=== PATIENT | male | born 1980 | race Caucasian/White ===

== ENCOUNTER 2024-06-25 15:50 | Emergency (ER) | payer BC, SELFPAY ==
--- NOTE | ~2024-06-25 | XR_ITS ---
EXAMINATION: XR chest 2V DATE: 06/25/2024 16:38 INDICATION: Cough. TECHNIQUE: Frontal and lateral views of the chest were obtained on 3 radiographs. COMPARISON: None. FINDINGS: There is no pneumonia, pleural effusion, or pneumothorax. The heart size is normal. IMPRESSION: 1. No acute cardiopulmonary disease. Reviewed, dictated and finalized at location A. [facility] [employer]
[2024-06-25 15:56] VITALS: BP 132/87; PULSE 65; RESP 16; TEMP 37.1; O2SAT 100
--- NOTE | 2024-06-25 16:25 | ED.URI ---
HPI - URI/Sore Throat General Chief Complaint: Upper Respiratory Infection Stated Complaint: Shortness of Breath/Cough Time Seen by Provider: 06/25/24 16:25 Source: patient Mode of arrival: ambulatory Limitations: no limitations History of Present Illness HPI Narrative: 43-year-old male presents with complaint of cough, chest congestion for 1 week. Reports shortness of breath with exertion for the last 1-2 days. Patient reports family members at home have pneumonia. Patient is afebrile. Current everyday smoker. All systems reviewed and negative except as noted above. Related Data Home Medications Medication Instructions Recorded Confirmed allopurinol 300 mg tablet 300 mg PO DAILY 06/25/24 06/25/24 Allergies Allergy/AdvReac Type Severity Reaction Status Date / Time No Known Allergies Allergy Mild Verified 06/25/24 16:30 Review of Systems Review of Systems: CONSTITUTIONAL: Denies fever, chills, or sweats. EYES: Denies visual changes, redness, or discharge. ENT: Denies rhinorrhea, congestion, sore throat, or otalgia. CARDIOVASCULAR: Denies chest pain, palpitations, or edema. RESPIRATORY: Reports cough, chest congestion and dyspnea with exertion. GASTROINTESTINAL: Denies abdominal pain, nausea, vomiting, or diarrhea. GENITOURINARY: Denies dysuria or hematuria. SKIN: Denies rash or itching. MUSCULOSKELETAL: Denies back pain, joint pain, or myalgia. NEUROLOGIC: Denies headache, numbness, or weakness. PSYCHIATRIC: Denies anxiety or depression. All other systems reviewed are negative, except as documented in HPI. PMFSH Comments At time of signature, agree with nursing past medical, surgical, social and family history. There is no relevant family history pertinent to the presenting complaint. Exam Narrative: GENERAL: This is a well-nourished, well-developed patient, patient ill-appearing but no acute distress HEAD: normocephalic, atraumatic. EYES: PERRL. Sclera clear/white. Vision is grossly intact. EARS: External ears normal, auditory canals clear and without drainage, TMs normal without perforation. Hearing grossly intact. NOSE: External nose normal with nasal congestion, clear drainage THROAT: Mucous membranes moist, posterior pharynx clear. NECK: Neck supple, non-tender without lymphadenopathy, masses or thyromegaly. CARDIOVASCULAR: Regular rate and rhythm without murmurs, gallops, or rubs. RESPIRATORY: Mildly coarse throughout all lung pool. Breath sounds equal bilaterally. No wheezes, rales, or rhonchi. SKIN: warm, Dry, intact with no suspicious lesions or rash, good texture and turgor. NEURO: awake, alert, and oriented to person, place and time. There were no obvious focal neurologic abnormalities. EXTREMITIES: No joint tenderness, effusion, or edema noted. Course Course Level of Care: Express Care Visit Vital Signs Vital signs: Vital Signs Temperature 37.1 C 06/25/24 15:56 Pulse Rate 65 06/25/24 15:56 Respiratory Rate 16 06/25/24 15:56 Blood Pressure 132/87 06/25/24 15:56 Pulse Oximetry 100 06/25/24 15:56 Oxygen Delivery Room Air 06/25/24 15:56 Temperature 37.1 C 06/25/24 15:56 Pulse Rate 65 06/25/24 15:56 Respiratory Rate 16 06/25/24 15:56 Blood Pressure 132/87 06/25/24 15:56 Pulse Oximetry 100 06/25/24 15:56 Oxygen Delivery Room Air 06/25/24 15:56 Reviewed MDM - URI/Sore Throat MDM Narrative Medical decision making narrative: Chest x-ray negative for pneumonia. Will treat patient with prednisone, albuterol inhaler for bronchitis. Patient well-appearing, no respiratory distress. Patient is aware of diagnosis, understands and agrees to treatment plan. Anticipatory guidance given. Patient agrees to follow-up as directed and is aware of reasons to seek care at the emergency department. Portions of this record may have been created with voice recognition software Differential Diagnosis Differential diagnosis: Likely upper respiratory infection and bronchitis Imaging Data My impression: Agree with radiologist Radiologist's impression: EXAMINATION: XR chest 2V DATE: 06/25/2024 16:38 INDICATION: Cough. TECHNIQUE: Frontal and lateral views of the chest were obtained on 3 radiographs. COMPARISON: None. FINDINGS: There is no pneumonia, pleural effusion, or pneumothorax. The heart size is normal. IMPRESSION: 1. No acute cardiopulmonary disease. Discharge Plan Discharge Clinical Impression: Acute bronchitis Patient Disposition: Home, Self-Care Condition: Stable Instructions: Acute Bronchitis (ED) Additional Instructions: Your chest x-ray was normal, there were no concerns for pneumonia. Take medications as prescribed. Drink at least 64 oz of water a day. Follow-up your primary care physician if symptoms are not improving. Prescriptions: New benzonatate 200 mg capsule 200 mg PO TID PRN (Reason: cough) Qty: 20 0RF prednisone 20 mg tablet 40 mg PO DAILY 5 Days Qty: 10 0RF albuterol sulfate 90 mcg/actuation HFA aerosol inhaler 2 puff inhalation Q4-6H PRN (Reason: shortness of breath or wheezing) Qty: 8.5 0RF guaifenesin [Mucinex] 600 mg tablet extended release 12hr 600 mg PO BID 10 Days Qty: 20 0RF No Action allopurinol 300 mg tablet 300 mg PO DAILY Follow-up/Referrals: UNKNOWN,DOCTOR [Primary Care Provider] - Stand Alone Forms: Work/School Release IP Time of Disposition: 16:55
== END 2024-06-25 17:00 | disposition home or self-care (01) ==
PROVIDERS: Emergency Provider Nurse Practitioner Family
DX: J20.9 Acute bronchitis, unspecified (principal); M10.9 Gout, unspecified
CPT/HCPCS: 71046; 99213; G0463

== ENCOUNTER 2024-06-29 08:20 | Emergency (ER) | payer BC, OTHER, SELFPAY ==
[2024-06-29 08:28] VITALS: BP 115/80; PULSE 64; RESP 20; TEMP 36.6; O2SAT 100
--- NOTE | 2024-06-29 08:33 | ED.URI ---
HPI - URI/Sore Throat General Chief Complaint: Upper Respiratory Infection Stated Complaint: Congestion Time Seen by Provider: 06/29/24 08:33 Source: patient, RN notes reviewed and old records reviewed Mode of arrival: ambulatory Limitations: no limitations History of Present Illness HPI Narrative: 43-year-old male to Express Care with complaint of cough. Patient seen here 1 week ago and diagnosed with bronchitis. Patient was given prescription for benzonatate, prednisone, albuterol, Mucinex extended release. patient has been taking all medication as prescribed, states no improvement. Patient states he is experiencing body aches and weakness. Patient denies shortness of breath, chest pain, allergies. Patient able to tolerate fluids by mouth. Patient resting comfortably in exam room no acute distress. Cough present. Respirations even and nonlabored. Patient able to speak in complete sentences without difficulty. Related Data Home Medications Medication Instructions Recorded Confirmed allopurinol 300 mg tablet 300 mg PO DAILY 06/25/24 06/29/24 Allergies Allergy/AdvReac Type Severity Reaction Status Date / Time No Known Allergies Allergy Mild Verified 06/29/24 08:41 Review of Systems Review of Systems: All systems reviewed & are unremarkable except as noted in HPI and below Constitutional: Constitutional: Reports as per HPI and Reports body ache(s) Eyes: Eyes: Reports no additional eye complaints ENT: Reports system reviewed and no additional complaints, except as documented Cardiovascular: Cardiovascular: Reports no additional cardiovascular complaints, Denies chest pain and Denies dyspnea Respiratory: Respiratory: Reports no additional respiratory complaints, Denies cough and Denies dyspnea Musculoskeletal: Musculoskeletal: Reports no additional musculoskeletal complaints Neurologic: Reports system reviewed and no additional complaints, except as documented Psychiatric: Psychiatric: Reports no additional psychiatric complaints PMFSH Comments At the time of my signature, I reviewed and agree with the nursing past medical, surgical, social, and family history. There is no relevant family history pertinent to the patient complaint. Exam Const: General: cooperative, healthy appearing, comfortable, no acute distress, alert and well nourished Nutritional Appearance: well nourished Orientation/consciousness: patient oriented x3 Limitations: no limitations HENMT: Head: normal to inspection Ears: external ears normal Face/Nose/Sinus: Normal external nose present, Normal nares present, normal facial exam, No erythema and No edema Face and sinus: normal facial exam, no erythema and no edema Mouth: Yes Normal oral and palatal mucosa present Eyes: General: appearance normal, both eyes and all related structures Neck: Neck: normal visual inspection, full ROM and no meningeal signs Lymphatic: no lymphadenopathy noted and no lymphedema noted Chest: Chest palpation & inspection: normal inspection of the chest Resp: Effort & Inspection: normal respiratory effort and able to speak in complete sentences Auscultation: clear to auscultation bilaterally Cardio: Jugular venous distension: no JVD Rate: regular rate Rhythm: regular rhythm Back/Spine/Pelvis: Cervical Spine: cervical ROM normal Skin: General skin exam: normal color, no rashes or lesions noted and turgor normal Neuro: General: patient oriented x3, gait normal, moves all extremities and no meningeal signs Speech: normal speech Gait exam (Neuro): Normal gait present Extrem: General: normal to inspection, full ROM and capillary refill normal Psych: Appearance: grossly normal and well kempt Course Course Emergency Course: Some parts of this dictation were generated by voice recognition software and may contain typographical and/or grammatical inaccuracies. Level of Care: Express Care Visit Vital Signs Vital signs: Vital Signs Temperature 36.6 C 06/29/24 08:28 Pulse Rate 64 06/29/24 08:28 Respiratory Rate 20 06/29/24 08:28 Blood Pressure 115/80 06/29/24 08:28 Pulse Oximetry 100 06/29/24 08:28 Oxygen Delivery Room Air 06/29/24 08:28 Temperature 36.6 C 06/29/24 08:28 Pulse Rate 64 06/29/24 08:28 Respiratory Rate 20 06/29/24 08:28 Blood Pressure 115/80 06/29/24 08:28 Pulse Oximetry 100 06/29/24 08:28 Oxygen Delivery Room Air 06/29/24 08:28 reviewed MDM - URI/Sore Throat MDM Narrative Medical decision making narrative: 43-year-old male to Express Care with complaint of cough. Patient seen here 1 week ago and diagnosed with bronchitis. Patient was given prescription for benzonatate, prednisone, albuterol, Mucinex extended release. patient has been taking all medication as prescribed, states no improvement. Patient states he is experiencing body aches and weakness. Patient denies shortness of breath, chest pain, allergies. Patient able to tolerate fluids by mouth. Patient resting comfortably in exam room no acute distress. Cough present. Respirations even and nonlabored. Patient able to speak in complete sentences without difficulty. Discharge Plan Discharge Clinical Impression: Cough Patient Disposition: Home, Self-Care Condition: Stable Instructions: Acute Cough (ED) Additional Instructions: -Alternate Tylenol and Motrin per package directions for fever or pain. -Antihistamine medication such as Benadryl at night and Zyrtec/Claritin/Bina during the day can help improve symptoms. -Use Flonase twice a day for 5 days then daily to help reduce the inflammation and dry up your sinuses. -You can also use Sudafed or Mucinex. Be sure to drink plenty of water with these medications at least 8 ounces with every dose and it is important to drink 8 to 10 glasses of water per day. Water is a natural decongestant -Eat and drink things that are easy to swallow, like tea or soup, or popsicles. -Oral rinses such as: Salt water gargles and/or may use topical anesthetic (eg. Chloraseptic spray) or lozenges to relieve dryness or throat pain). -Frequent hand washing or hand aerodynamics engineer is one of the best ways to prevent spread of infection. -Using a vaporizer or humidifier at night will also help thin secretions and help with coughing up phlegm. -Follow up with primary care provider in 2-3 days if condition is not improving; or seek ER visit if you have trouble breathing, cannot drink enough fluids, have muffled voice, difficulty opening your mouth, or severe swelling. Prescriptions: New azithromycin 250 mg tablet 250 mg PO DAILY Qty: 6 0RF Rx Instructions: 250 mg orally. Take TWO tablets today, then one tablet daily for 4 days. amoxicillin-pot clavulanate 875-125 mg tablet 1 tablet PO Q12H Qty: 20 0RF No Action allopurinol 300 mg tablet 300 mg PO DAILY benzonatate 200 mg capsule 200 mg PO TID PRN (Reason: cough) Qty: 20 0RF prednisone 20 mg tablet 40 mg PO DAILY 5 Days Qty: 10 0RF albuterol sulfate 90 mcg/actuation HFA aerosol inhaler 2 puff inhalation Q4-6H PRN (Reason: shortness of breath or wheezing) Qty: 8.5 0RF guaifenesin [Mucinex] 600 mg tablet extended release 12hr 600 mg PO BID 10 Days Qty: 20 0RF Follow-up/Referrals: UNKNOWN,DOCTOR [Primary Care Provider] - Stand Alone Forms: Work/School Release IP
== END 2024-06-29 08:57 | disposition home or self-care (01) ==
PROVIDERS: Emergency Provider Nurse Practitioner Family
DX: R05.9 Cough, unspecified (principal)
CPT/HCPCS: 99213; G0463

== ENCOUNTER 2024-07-05 19:13 | Emergency (ER) | payer BC, OTHER, SELFPAY ==
[2024-07-05 19:16] VITALS: BP 144/79; PULSE 66; RESP 20; TEMP 36.4; O2SAT 98
--- NOTE | 2024-07-05 19:30 | ED_ITS ---
HPI - Extremity Injury (Lower) General Chief Complaint: Extremity Problem,Nontraumatic Stated Complaint: Right Toe Pain Source: patient Mode of arrival: ambulatory Limitations: no limitations History of Present Illness HPI Narrative: 43-year-old male presented for complaint of right great toe pain, onset yesterday. States he thinks he has a gout flare. Denies significant redness or swelling yet. Takes allopurinol as prescribed. he started indomethacin last night and multiple doses today without significant improvement. However he states he is aware that if he had taken it he would not be able to walk. denies trauma or change to diet. Related Data Home Medications Medication Instructions Recorded Confirmed allopurinol 300 mg tablet 300 mg PO DAILY 06/25/24 07/05/24 indomethacin 25 mg capsule 25 mg PO BID PRN Pain 07/05/24 07/05/24 Allergies Allergy/AdvReac Type Severity Reaction Status Date / Time No Known Allergies Allergy Mild Verified 07/05/24 19:29 Review of Systems Review of Systems: CONSTITUTIONAL: Denies body aches, fever, chills CARDIOVASCULAR: Denies chest pain, palpitations, or edema. RESPIRATORY: Denies cough or dyspnea. SKIN: Denies rash, itching, or wounds. MUSCULOSKELETAL: Reports right great toe pain NEUROLOGIC: Denies headache, numbness, tingling, or weakness. PSYCH: Denies depression or anxiety. All systems reviewed & are unremarkable except as noted in HPI and below PMFSH Comments At time of signature, I have reviewed and agree with nursing past medical, surgical, social and family history unless otherwise noted. Please see nursing chart for further information. There is no relevant family history pertinent to the presenting complaint Exam Narrative: GENERAL: Well-appearing CHEST: Speaks in full sentences. No respiratory distress. HEART: Regular rate and rhythm. Normal and equal peripheral pulses. EXTREMITIES: Right foot has normal strength and sensation, normal range of motion. Mildly erythematous 1st MTP joint, tender with palpation. No swelling or ecchymosis, No open wounds, or obvious deformity; alignment normal, pulse palpable and equal bilaterally, skin warm, dry, pink. Capillary refill less than 3 seconds. SKIN: Warm, dry NEURO: Alert and oriented x3. PSYCH: Normal mood and affect Course Course Emergency Course: Patient is aware of diagnosis, understands and agrees to treatment plan. Anticipatory guidance given. Patient agrees to follow-up as directed and is aware of reasons to seek care at the emergency department. Portions of this record may have been created with voice recognition software Level of Care: Express Care Visit Vital Signs Vital signs: Vital Signs Temperature 97.5 F L 07/05/24 19:16 Pulse Rate 66 07/05/24 19:16 Respiratory Rate 20 07/05/24 19:16 Blood Pressure 144/79 H 07/05/24 19:16 Pulse Oximetry 98 07/05/24 19:16 Oxygen Delivery Room Air 07/05/24 19:16 Temperature 97.5 F L 07/05/24 19:16 Pulse Rate 66 07/05/24 19:16 Respiratory Rate 20 07/05/24 19:16 Blood Pressure 144/79 H 07/05/24 19:16 Pulse Oximetry 98 07/05/24 19:16 Oxygen Delivery Room Air 07/05/24 19:16 Reviewed MDM - Extremity Injury (Lower) MDM Narrative Medical decision making narrative: Discussed physical exam findings and reviewed Rx. Advised supportive measures and signs/symptoms to go to the ER. Pt is appropriate for outpt treatment and f/u. Differential Diagnosis Differential diagnosis: Likely other (Plantar fasciitis, heel spur, foot strain/sprain, metatarsal fracture, metatarsalgia, driver's neuroma, gout) Discharge Plan Discharge Clinical Impression: Great toe pain Patient Disposition: Home, Self-Care Condition: Stable Instructions: Gout (ED) Additional Instructions: Gout is a form of inflammatory?arthritis that causes pain and swelling in your joints. A buildup of excess uric acid in your body causes gout. Your body naturally makes uric acid when it breaks down chemicals called purines found in certain foods and drinks. Your kidneys usually filter uric acid out of your blood. Gout symptoms come and go in episodes called flares or gout attacks.?Gout attac ks usually last a week or two. You might have some flares that last longer than others, and some might cause more severe symptoms. Between attacks, you might not experience any gout symptoms. Risks include: Parent/grandparent with gout Eating a lot of animal proteins ? especially animal flesh, shellfish and foods that contain organ meat. Drinking alcohol regularly. Taking a diuretic medication (water pills). Taking immunosuppressants Take medication as directed Recommend low purine diet Follow up with primary care provider in 1 week Go to the ER for worsening symptoms or concerns Prescriptions: New prednisone 20 mg tablet 20 mg PO DAILY Qty: 15 0RF Rx Instructions: Take 2 tablets daily for 5 days. Then 1 tablet daily for 5 days. No Action allopurinol 300 mg tablet 300 mg PO DAILY albuterol sulfate 90 mcg/actuation HFA aerosol inhaler 2 puff inhalation Q4-6H PRN (Reason: shortness of breath or wheezing) Qty: 8.5 0RF indomethacin 25 mg Capsule 25 mg PO BID PRN (Reason: Pain) Rx Instructions: administer with food or milk Follow-up/Referrals: UNKNOWN,DOCTOR [Primary Care Provider] - Time of Disposition: 19:45
== END 2024-07-05 20:00 | disposition home or self-care (01) ==
PROVIDERS: Emergency Provider Nurse Practitioner Family
DX: M79.674 Pain in right toe(s) (principal); M10.9 Gout, unspecified
CPT/HCPCS: 99213; G0463